=== PATIENT | female | born 1995 | race Two or more races ===

== ENCOUNTER 2021-02-10 07:30 | Day surgery (SDC) | payer OTHER | END 2021-02-10 11:15 | disposition home or self-care (01) | LOC: AMB-ENDOS 07:30 | PROVIDERS: ATTEND Surgery | DX: K29.60 Other gastritis without bleeding (principal); K44.9 Diaphragmatic hernia without obstruction or gangrene; Z20.822 Contact with and (suspected) exposure to COVID-19 ==